=== PATIENT | male | born 2000 | race Caucasian/White ===

== ENCOUNTER 2023-05-21 11:21 | Emergency (ER) | payer MEDICAID ==
[~2023-05-21] VITALS: Ht 172.7 cm; Wt 95.0 kg
[2023-05-21 11:30] VITALS: BP 125/78; PULSE 72; RESP 20; TEMP 98; O2SAT 99
[2023-05-21 12:07] LABS: CLARITY URINE CLEAR (CLEAR); COLOR URINE YELLOW (YELLOW); GLUCOSE URINE NEGATIVE (NEGATIVE); KETONES URINE NEGATIVE (NEGATIVE); LEUKOCYTE ESTERASE URINE 1+ (NEGATIVE); NITRITE URINE NEGATIVE (NEGATIVE); OCCULT BLOOD URINE NEGATIVE (NEGATIVE); PH URINE >=9.0 (4.5-8.0); PROTEIN URINE TRACE (NEGATIVE); UROBILINOGEN URINE 0.2 E.U./dL (0.2-1.0)
[2023-05-21 12:52] LABS: RBC URINE NONE SEEN /hpf (0-2)
[2023-05-21 12:53] LABS: BACTERIA URINE NONE SEEN
[2023-05-21] MEDS ORDERED: NITR-87 MT (16:33)
[2023-05-21] MEDS ORDERED: IBUP-2028 MT (16:37)
[2023-05-22 17:06] LABS: CHLAMYDIA TRACHOMATIS NAA Positive (Negative); NEISSERIA GONORRHOEAE NAA Negative (Negative)
== END 2023-05-21 16:47 | disposition home or self-care (01) ==
LOC: ER 11:21
DX: N43.3 Hydrocele, unspecified (principal); N39.0 Urinary tract infection, site not specified
CPT/HCPCS: 76870; 81003; 87491; 87591; 93976; 99284